=== PATIENT | male | born 1970 | race Caucasian/White ===

== ENCOUNTER 2016-11-05 11:36 | Emergency (ER) | payer OTHER ==
[2016-11-05 13:58] LABS: HEMOGLOBIN 14.8 gm/dl (14.0-17.5); RED BLOOD COUNT 4.75 M/UL (4.20-5.50); WHITE BLOOD COUNT 12.7 K/UL (4.5-11.0)
[2016-11-05 14:17] LABS: BUN/CREATININE RATIO 22 (0-10)
== END 2016-11-05 16:40 | disposition left against medical advice (07) ==
LOC: ER1 11:36
PROVIDERS: Emergency Medicine
DX: R31.29 Other microscopic hematuria (principal); S09.90XA Unspecified injury of head, initial encounter; S39.92XA Unspecified injury of lower back, initial encounter; S59.901A Unspecified injury of right elbow, initial encounter; F17.210 Nicotine dependence, cigarettes, uncomplicated; V86.59XA Driver of other special all-terrain or other off-road motor vehicle injured in nontraffic accident, initial encounter
CPT/HCPCS: 36415; 70450; 71260; 72125; 72131; 80053; 81001; 82550; 82553; 83690; 83874; 84484; 85025; 93005; 96360; 96361; 99284; J7030; J7050; Q9962